=== PATIENT | male | born 1980 | race Caucasian/White ===

== ENCOUNTER 2020-01-14 07:00 | Emergency (ER) | payer BC ==
--- NOTE | 2020-01-14 07:23 | EDM.PDOC ---
ED HPI GENERAL MEDICAL PROBLEM - General Chief Complaint: Laceration Stated Complaint: LACERATION ON RIGHT LEG Time Seen by Provider: 01/14/20 07:18 Source of Information: Reports: Patient, RN, RN Notes Reviewed History Limitations: Reports: No Limitations - History of Present Illness INITIAL COMMENTS - FREE TEXT/NARRATIVE: Patient presents to the ED via personal vehicle with complaints of laceration to right anterior leg. The patient reports he was skinning a deer with a new, sharp filet knife this morning with his left hand (non-dominant hand). He states the knife slipped and he cut his leg. He denies loss of motor or sensory function to the affected extremity. He states he is currently up to date on his tetanus vaccination. - Related Data Allergies Allergy/AdvReac Type Severity Reaction Status Date / Time No Known Allergies Allergy Verified 01/14/20 07:04 Home Meds: Home Meds . [No Known Home Meds] 01/14/20 [History] ED ROS GENERAL - Review of Systems Review Of Systems: Comprehensive ROS is negative, except as noted in HPI. ED EXAM, SKIN/RASH Exam: See Below Exam Limited By: No Limitations General Appearance: Alert, WD/WN, No Apparent Distress Peripheral Pulses: 2+: Posterior Tibial (L), Posterior Tibial (R), Dorsalis Pedis (L), Dorsalis Pedis (R) Extremities: Normal Range of Motion, No Pedal Edema, Normal Capillary Refill, Leg Pain (Laceration to right anterior leg). No: Limited Range of Motion Neurological: Alert, Oriented, CN II-XII Intact, Normal Cognition, Normal Gait, No Motor/Sensory Deficits Psychiatric: Normal Affect, Normal Mood Skin: Warm, Dry, Intact, Normal Color, No Rash, Wound/Incision (Clean laceration to right anterior leg). No: Ecchymosis, Erythema, Excoriations, Mottled, Pallor, Petechiae Location, Skin: Lower Extremity, Right Characteristics: Erythematous Associated features: Tenderness, Swelling. No: Warmth, Induration, Inflammation, Crusting, Weeping ED SKIN PROCEDURES - Laceration/Wound Repair Right Middle Anterior Midline Proximal Leg Appearance: Subcutaneous Distal NVT: Neuro & Vascular Intact, No Tendon Injury Anesthetic Type: Local Local Anesthesia - Lidocaine (Xylocaine): 1% Plain Local Anesthetic Volume: Other (10cc) Skin Prep: Chlorhexidine (Hibiciens), Sterile Drape Exploration/Debridement/Repair: Wound Explored, In a Bloodless Field, Explored to Base, No Foreign Material Found, Wound Margins Revised Closed with: Sutures Lac/Wound length In cm: 4 Suture Size: 4-0 # of Sutures: 4 Suture Type: Prolene Drain Placement: No Sterile Dressing Applied: Nurse Tetanus Status Addressed: Yes Course - Vital Signs Last Recorded V/S: Last Vital Signs Temp 97 F 01/14/20 07:11 Pulse 68 01/14/20 07:11 Resp 18 01/14/20 07:11 BP 107/57 L 01/14/20 07:11 Pulse Ox 100 01/14/20 07:11 - Orders/Labs/Meds Meds: Medications Discontinued Medications Generic Name Dose Route Start Last Admin Trade Name Samson PRN Reason Stop Dose Admin Lidocaine HCl 30 ml 01/14/20 07:26 Xylocaine-Mpf 1% INJECT 01/14/20 07:27 ONETIME ONE - Re-Assessments/Exams Free Text/Narrative Re-Assessment/Exam: 01/14/20 Laceration clean. 4 sutures tied without complication. Patient instructed on wound care and to follow up at primary care facility for suture removal in seven days. Departure - Departure Time of Disposition: 07:51 Disposition: Home, Self-Care 01 Condition: Good Clinical Impression: Laceration of right lower extremity Qualifiers: Encounter type: initial encounter Qualified Code(s): S81.811A - Laceration without foreign body, right lower leg, initial encounter - Discharge Information *PRESCRIPTION DRUG MONITORING PROGRAM REVIEWED*: Not Applicable *COPY OF PRESCRIPTION DRUG MONITORING REPORT IN PATIENT MARIA DEL CARMEN: Not Applicable Instructions: Wound Infection, [id number], Laceration Care, Adult, [id number] Forms: ED Department Discharge Additional Instructions: 1.) Keep sterile dressing in place until tomorrow morning. 2.) Keep wound clean and dry, change dressing daily and as needed if it becomes soiled. 3.) Follow up with your primary care facility for suture removal in seven days. 4.) You may take acetaminophen (Tylenol) 650mg every six hours for pain. You may take ibuprofen (Advil/Motrin) 400mg every six hours for pain. You may stagger these medications so you are taking a dose every three hours. Sepsis Event Note (ED) - Evaluation Sepsis Screening Result: No Definite Risk - Focused Exam Vital Signs: Vital Signs Temp Pulse Resp BP Pulse Ox 01/14/20 07:11 97 F 68 18 107/57 L 100
[2020-01-14] MEDS ORDERED: Lidocaine 1% 30 ML SDV INJECT ONE (07:26)
== END 2020-01-14 08:02 | disposition home or self-care (01) ==
LOC: DL.ED 07:00
DX: S81.811A Laceration without foreign body, right lower leg, initial encounter (principal); W26.0XXA Contact with knife, initial encounter
CPT/HCPCS: 12002; 99282; J2001